=== PATIENT | male | born 1980 | race American Indian/Alaskan Native ===

== ENCOUNTER 2017-04-22 21:04 | Emergency (ER) | payer MEDICAID ==
[~2017-04-22] VITALS: Ht 177.8 cm; Wt 105.5 kg
[~2017-04-22 21:04] MED LIST: ASPI-496 PO; ATOR20TA9 PO; CARV3.122 PO; FURO40TA6 PO; INSU100I7 SQ-INSULIN; LEVO750T26 PO; LOSA25TA5 PO; METF500T4 PO; POTA8CAP PO; SPIR25TA3 PO
[2017-04-22 21:53] LABS: HEMOGLOBIN 13.9 g/dL (13.7-18.0); WHITE BLOOD COUNT 10.5 x10^3/uL (3.4-10)
[2017-04-22 22:02] LABS: ASPARTATE AMINO TRANSFERASE 35 U/L (15-37); BLOOD UREA NITROGEN 30 mg/dL (7-18)
[2017-04-22] MEDS ORDERED: BACITRACIN ZINC OINT 500U/GM, 0.9 GM ONE (22:04)
[2017-04-22] MEDS ORDERED: SODIUM CHLORIDE FLUSH 10ML SYR IVF ONE (22:30)
[2017-04-22] MEDS ORDERED: SODIUM CHLORIDE 0.9% 1,000ML IVBOLUS ONE (22:30)
[2017-04-22 23:37] VITALS: BP 138/88
== END 2017-04-22 23:55 | disposition home or self-care (01) ==
LOC: ED 22:52
DX: L03.116 Cellulitis of left lower limb (principal); G89.29 Other chronic pain; E11.65 Type 2 diabetes mellitus with hyperglycemia; E11.621 Type 2 diabetes mellitus with foot ulcer; E78.00 Pure hypercholesterolemia, unspecified; I50.9 Heart failure, unspecified
CPT/HCPCS: 36415; 73630; 80053; 82010; 82962; 85025; 96360; 99285; J7030